=== PATIENT | female | born 1990 | race African-American/Black ===

== ENCOUNTER 2018-01-21 00:35 | Emergency (ER) | payer OTHER ==
[2018-01-21] MEDS: LIDOCAINE 1% MDV 20ML VIAL IM (01:14)
== END 2018-01-21 01:54 | disposition home or self-care (01) ==
LOC: M ED 00:35
DX: S61.412A Laceration without foreign body of left hand, initial encounter (principal); W26.0XXA Contact with knife, initial encounter; Y92.099 Unspecified place in other non-institutional residence as the place of occurrence of the external cause; Y93.G3 Activity, cooking and baking; Y99.9 Unspecified external cause status
CPT/HCPCS: 12042

== ENCOUNTER 2018-01-31 12:09 | Emergency (ER) | payer OTHER, SELFPAY ==
[~2018-01-31] VITALS: Ht 172.7 cm; Wt 95.5 kg
[2018-01-31 12:18] VITALS: BP 132/84
[2018-01-31] MEDS ORDERED: TYLE500T78 PO (12:22)
[2018-01-31] MEDS ORDERED: KEFL500C17 PO (12:56)
== END 2018-01-31 13:13 | disposition home or self-care (01) ==
LOC: M ED 12:09
DX: Z48.02 Encounter for removal of sutures (principal); L02.512 Cutaneous abscess of left hand; Z72.0 Tobacco use

== ENCOUNTER 2018-02-01 10:54 | Emergency (ER) | payer OTHER, SELFPAY ==
[~2018-02-01] VITALS: Ht 172.7 cm; Wt 95.5 kg
[2018-02-01 10:54] VITALS: BP 145/98
[~2018-02-01 10:54] MED LIST: KEFL500C17 PO; TYLE500T78 PO
== END 2018-02-01 11:57 | disposition home or self-care (01) ==
LOC: M ED 10:54
DX: S61.412A Laceration without foreign body of left hand, initial encounter (principal); L08.9 Local infection of the skin and subcutaneous tissue, unspecified; M67.844 Other specified disorders of tendon, left hand; X58.XXXA Exposure to other specified factors, initial encounter; Z79.2 Long term (current) use of antibiotics